=== PATIENT | female | born 1960 | race Two or more races ===

== ENCOUNTER 2018-02-21 06:30 | Emergency (ER) | payer BC ==
[~2018-02-21] VITALS: Ht 160 cm; Wt 84.4 kg
[2018-02-21] MEDS ORDERED: LOPRESSOR25 MG (06:54)
[2018-02-21] MEDS ORDERED: ZITHROMAX TRI-500 MG PO (11:37)
[2018-02-21] MEDS ORDERED: TUSSI PRES-B L120 M1 PO (11:37)
[2018-02-21] MEDS ORDERED: ZYRTEC10 M3 PO (11:37)
== END 2018-02-21 11:35 | disposition home or self-care (01) ==
LOC: ER 06:30
DX: B34.9 Viral infection, unspecified (principal)